=== PATIENT | female | born 1990 | race Caucasian/White ===

== ENCOUNTER 2019-04-14 08:45 | Inpatient (IN) | payer BC ==
[2019-04-16] MEDS ORDERED: Butorphanol Tartrate 1 MG/ML VIAL SLOW IVP PRN (16:44)
[2019-04-16] MEDS ORDERED: Ibuprofen 800 MG TAB PO PRN (16:44)
[2019-04-16] MEDS ORDERED: Promethazine HCl 25 MG/ML VIAL IM PRN (16:44)
[2019-04-16] MEDS ORDERED: Lidocaine 1% (PF) 30 ML VIAL SC PRN (16:44)
[2019-04-16] MEDS ORDERED: Zolpidem Tartrate 5 MG TAB PO PRN (16:44)
[2019-04-16] MEDS ORDERED: Ondansetron PF 4 MG/2 ML Vial IVP PRN (16:44)
[2019-04-16] MEDS ORDERED: NS / Oxytocin 40 units/1000ml 1,000 ML IV PRN (16:44)
[2019-04-16] MEDS ORDERED: HYDROcodone/Acetaminophen 5/325 mg Tablet PO PRN ×2 (16:44)
[2019-04-16] MEDS ORDERED: hydrALAZINE 20 MG/ML VIAL SLOW IVP PRN (16:44)
[2019-04-16] MEDS ORDERED: NS w/ Oxytocin 10 units 500 ML IV SCH (16:45)
[2019-04-16] MEDS: Misoprostol 100 MCG TAB VAG SCH (21:18)
[2019-04-16 21:27] VITALS: BMI 29.9
[2019-04-16] MEDS: Lactated Ringer's 1,000 ML IV SCH (21:28)
[2019-04-16 21:42] LABS: Hemoglobin 13.1 g/dL (12.0-16.0); Mean Corpuscular HGB CONC 33.7 g/dL (32.0-36.0); Mean Platelet Volume 8.5 fL (7.4-10.4); Platelet Count 242 thou/uL (130-400); RBC Distribution Width 14.9 % (11.5-14.5); Red Blood Cell (RBC) Count 4.53 mill/uL (4.20-5.40); White Blood Cell (WBC) Count 8.6 thou/uL (4.8-10.8)
[2019-04-16 22:24] LABS: Syphilis Antibody Nonreactive (Nonreactive); Syphilis Antibody Index 0.05 S/CO (<1.00 Non-Reactive)
[2019-04-16 22:59] LABS: HBSAg Index 0.15 S/CO (0-0.99); Hep B Surf Ag Non-Reactive S/CO (NonReactive)
[2019-04-17] MEDS ORDERED: Fentanyl 4 mcg/Bup 0.1% Cadd 100 ML ONE ×3 (03:59→16:25)
[2019-04-17] MEDS ORDERED: Naloxone HCl 0.4 mg/ml Vial IVP PRN ×2 (04:14)
[2019-04-17] MEDS ORDERED: Acetaminophen 325 MG TAB PO PRN (04:14)
[2019-04-17] MEDS ORDERED: ePHEDrine/0.9% NaCl/PF SYRINGE 50 mg/10 ml SLOW IVP PRN (04:14)
[2019-04-17] MEDS: Misoprostol 100 MCG TAB VAG SCH ×2 (04:14→10:21)
[2019-04-17] MEDS ORDERED: diphenhydrAMINE 50 MG/ML VIAL IVP PRN (04:14)
[2019-04-17] MEDS ORDERED: Promethazine HCl 25 MG/ML VIAL IM PRN (04:14)
[2019-04-17] MEDS ORDERED: Ondansetron PF 4 MG/2 ML Vial IVP PRN ×2 (04:14→18:50)
[2019-04-17] MEDS ORDERED: Lactated Ringer's 500 ML IV PRN (04:14)
[2019-04-17] MEDS ORDERED: Communication Order-Pharmacy FS SCH (04:15)
[2019-04-17] MEDS: Lactated Ringer's 1,000 ML IV SCH ×2 (04:21→10:20)
[2019-04-17] MEDS: Fentanyl 4 mcg/Bupivacaine 0.1% Cassette 100 ML EPIDURAL SCH ×2 (04:37→10:31)
[2019-04-17] MEDS ORDERED: FLU VACC QS2019-20(6MOS UP)/PF 60 MCG/0.5 ML SYRINGE IM ONE (09:00)
[2019-04-17] MEDS ORDERED: Lidocaine 1.5%/Epinephrine 1:200,000 5 ML AMPUL IJ ONE (18:16)
[2019-04-17] MEDS ORDERED: Bisacodyl 10 MG SUPP PR PRN (18:50)
[2019-04-17] MEDS ORDERED: Lanolin Ointment 7 GM TUBE TOP PRN (18:50)
[2019-04-17] MEDS ORDERED: Milk Of Magnesia 30 ML UDCUP PO PRN (18:50)
[2019-04-17] MEDS ORDERED: hydrALAZINE 20 MG/ML VIAL SLOW IVP PRN (18:50)
[2019-04-17] MEDS ORDERED: Adacel (T-DAP) 0.5 ML SYRINGE IM ONE (18:50)
[2019-04-17] MEDS ORDERED: NS / Oxytocin 40 units/1000ml 1,000 ML IV SCH (19:00)
[2019-04-17] MEDS: Docusate Calcium (SURFAK) 240 MG CAP PO SCH (21:52)
[2019-04-17] MEDS: Ibuprofen 800 MG TAB PO SCH (21:52)
[2019-04-17] MEDS ORDERED: HYDROcodone/Acetaminophen 5/325 mg Tablet PO PRN ×2 (23:30)
[2019-04-18] MEDS: Ibuprofen 800 MG TAB PO SCH ×3 (05:39→22:16)
[2019-04-18] MEDS: Ferrous Sulfate 325 MG TAB PO SCH ×2 (09:31→17:46)
[2019-04-18] MEDS: Prenatal Vitamin 1 TAB PO SCH (09:32)
[2019-04-18] MEDS: Docusate Calcium (SURFAK) 240 MG CAP PO SCH ×2 (09:32→22:16)
[2019-04-18] MEDS ORDERED: Benzocaine-Menthol 82.5 ML CAN TOP PRN (17:19)
[2019-04-18] MEDS: Misoprostol 100 MCG TAB VAG SCH (21:16)
[2019-04-18] MEDS: Lactated Ringer's 1,000 ML IV SCH (21:16)
[2019-04-19] MEDS: Ibuprofen 800 MG TAB PO SCH ×2 (07:20→13:42)
[2019-04-19 08:01] VITALS: BP 128/86; TEMP 97.7
[2019-04-19] MEDS: Prenatal Vitamin 1 TAB PO SCH (08:24)
[2019-04-19] MEDS: Ferrous Sulfate 325 MG TAB PO SCH (08:24)
[2019-04-19] MEDS: Docusate Calcium (SURFAK) 240 MG CAP PO SCH (08:24)
--- NOTE | 2019-04-23 05:43 | DN ---
DATE OF PROCEDURE: 04/17/2019 PREOPERATIVE DIAGNOSES: 1. A 29-year-old G1 at 40 weeks and 3 days with an induction of labor for dates by Cytotec x3. 2. Group B Streptococcus negative. 3. Iron deficiency anemia of . 4. Artificial rupture of membranes for clear fluid. POSTOPERATIVE DIAGNOSES: 1. A 29-year-old G1 at 40 weeks and 3 days with an induction of labor for dates by Cytotec x3. 2. Group B Streptococcus negative. 3. Iron deficiency anemia of . 4. Artificial rupture of membranes for clear fluid. 5. Live-born male weighing 7 pounds 9 ounces with Apgars of 9 and 9 at 1 and 5 minutes respectively. PROCEDURE PERFORMED: Spontaneous vaginal delivery. ANESTHESIA: Epidural. ESTIMATED BLOOD LOSS: 250 mL. QUANTITATIVE BLOOD LOSS: 250 mL. CLINICAL HISTORY: This patient is a 29-year-old G1, who had an uneventful other than iron deficiency anemia. The patient approached her due date and was not showing any signs of progressing towards labor. She was counseled on induction and was scheduled. The induction was started with Cytotec. She received 3 doses and then progressed to Pitocin. When appropriate, the patient was ruptured with clear fluid and she requested an epidural for maternal analgesia. She continued to progress upon the labor curve appropriately and when she was complete and +2 station, she began to push. DESCRIPTION OF PROCEDURE: With good maternal effort, she was able to bring the vertex to the station. The head was delivered in the ANUPAMA position, and the anterior shoulder followed by the posterior shoulder followed by the remainder of the 's body was delivered. The infant cried vigorously and was stimulated and the cord was doubly clamped and cut by the father of the baby. The infant was then placed on the maternal abdomen for continued care and stimulation. The cord blood was obtained and the placenta was delivered spontaneously intact with a three-vessel cord. Exploration of the vagina, introitus, and cervix noted a first-degree laceration, which was repaired in a running fashion with excellent hemostasis. The patient tolerated the procedure well and was able to recover on Labor and Delivery with her infant. Again, the was a live born male with Apgars of 9 and 9 and weight of 7 pounds 9 ounces. All needle, sponge, lap, and instrument counts were correct x2 at the end of the procedure. There were no other issues surrounding this delivery. Job ID: [id number]
== END 2019-04-19 14:00 | disposition home or self-care (01) | DRG 807 ==
LOC: EDSTATUS 19:46 → L&D 04-16 19:49 → 3SW 04-17 22:25
PROVIDERS: ADMIT Obstetrics & Gynecology; ATTEND Obstetrics & Gynecology
PROC: 10907ZC Drainage of Amniotic Fluid, Therapeutic from Products of Conception, Via Natural or Artificial Opening (ICD-10-PCS; principal; 2019-04-16)
PROC: 10E0XZZ Delivery of Products of Conception, External Approach (ICD-10-PCS; 2019-04-16)
PROC: 3E033VJ Introduction of Other Hormone into Peripheral Vein, Percutaneous Approach (ICD-10-PCS; 2019-04-16)
DX: O99.02 Anemia complicating childbirth (principal); Z37.0 Single live birth; D64.9 Anemia, unspecified; O70.0 First degree perineal laceration during delivery; Z3A.40 40 weeks gestation of pregnancy
CPT/HCPCS: 36415; 85027; 86780; 86850; 86900; 86901; 87340; 88305; J2590; J3490